=== PATIENT | female | born 1975 | race Caucasian/White ===

== ENCOUNTER 2021-10-17 13:05 | Emergency (ER) | payer OTHER ==
[2021-10-17 13:13] VITALS: BP 113/71; PULSE 80; TEMP 98.9; BMI 28.3
[2021-10-17] MEDS ORDERED: ACETAMINOPHEN 1000 MG/100 ML BAG IVPB ONE (15:02)
[2021-10-17] MEDS ORDERED: SODIUM CHLORIDE 1,000 ML IV STA (15:02)
[2021-10-17] MEDS ORDERED: ONDANSETRON 4 MG/2 ML VIAL IVPUSH ONE (15:02)
[2021-10-17] MEDS ORDERED: ACETAMINOPHEN INJECTION 100 ML IVPB ONE (15:08)
[2021-10-17] MEDS ORDERED: ONDANSETRON 4 MG/2 ML VIAL ONE (15:08)
[2021-10-17 15:32] LABS: BASO % 0.3 % (0-2.0); EOS % 2.3 % (0-4.5); HEMATOCRIT 39.5 % (32.4-45.2); HEMOGLOBIN 13.4 GM/dL (10.7-15.3); LYMPH % 16.6 % (8-40); MCH 33.4 pg (25.7-33.7); MCHC 33.8 g/dl (32.0-36.0); MEAN CELL VOLUME 98.6 fl (80-96); MEAN PLT VOLUME 7.5 fl (7.5-11.1); MONO % 6.5 % (3.8-10.2); NEUT % 74.3 % (42.8-82.8); PLATELET COUNT 297 10^3/uL (134-434); RBC 4.01 M/mm3 (3.60-5.2); RDW 13.5 % (11.6-15.6); WHITE BLOOD COUNT 6.8 K/mm3 (4.0-10.0)
[2021-10-17 15:56] LABS: ALBUMIN 3.4 g/dl (3.4-5.0); BLOOD UREA NITROGEN 9.5 mg/dL (7-18); CALCIUM 8.9 mg/dL (8.5-10.1)
[2021-10-17 15:59] LABS: CREATININE 0.8 mg/dL (0.55-1.3)
[2021-10-17 16:01] LABS: BILIRUBIN,TOTAL 0.4 mg/dL (0.2-1)
[2021-10-17] MEDS ORDERED: FAMOTIDINE 20 MG/50 ML IVPB 20 MG/50 ML MG IVPB ONE ×2 (19:53→20:34)
[2021-10-17] MEDS ORDERED: METOCLOPRAMIDE HCL INJECTION 10 MG/2 ML VIAL IM ONE (19:54)
[2021-10-17] MEDS ORDERED: SODIUM CHLORIDE 500 ML IV STA (19:54)
[2021-10-17] MEDS ORDERED: METOCLOPRAMIDE HCL INJECTION 10 MG/2 ML VIAL ONE (20:34)
== END 2021-10-17 21:46 | disposition home or self-care (01) ==
LOC: JER 13:05
DX: K52.9 Noninfective gastroenteritis and colitis, unspecified (principal)
CPT/HCPCS: 36415; 74176-TC; 76705-TC; 80053; 83690; 84703; 85025; 87086; 99285-25